=== PATIENT | male | born 1985 | race African-American/Black ===

== ENCOUNTER 2019-05-26 16:51 | Emergency (ER) | payer OTHER ==
[~2019-05-26] VITALS: Ht 172.7 cm; Wt 99.8 kg
[2019-05-26] MEDS ORDERED: NAPROSYN500 MG PO (18:35)
[2019-05-26] MEDS ORDERED: AUGMENTIN 875-1 EACH PO (18:35)
[2019-05-26 19:25] VITALS: BP 122/89
== END 2019-05-26 19:26 | disposition home or self-care (01) ==
LOC: ER 16:51
DX: K11.20 Sialoadenitis, unspecified (principal)